=== PATIENT | male | born 1985 | race Caucasian/White ===

== ENCOUNTER → 2023-08-27 08:10 | Outpatient (REF) | payer OTHER, SELFPAY | LOC: RAD 08:10 | PROVIDERS: ATTENDING PHYSICIAN Internal Medicine; FAMILY PHYSICIAN Internal Medicine | DX: R14.2 Eructation (principal); R10.12 Left upper quadrant pain | CPT/HCPCS: 78264; A9541 ==

== ENCOUNTER → 2024-03-15 09:01 | Outpatient (REF) | payer OTHER, SELFPAY | LOC: MRI 3T 09:01 | PROVIDERS: ATTENDING PHYSICIAN Internal Medicine; FAMILY PHYSICIAN Internal Medicine | DX: K82.4 Cholesterolosis of gallbladder (principal); R14.1 Gas pain; R11.2 Nausea with vomiting, unspecified | CPT/HCPCS: 72197; 74183; A9585 ==

== ENCOUNTER 2024-04-01 06:37 | Day surgery (SDC) | payer OTHER, SELFPAY | END 2024-04-01 15:13 | disposition home or self-care (01) | LOC: GI 06:37 | PROVIDERS: ATTENDING PHYSICIAN Internal Medicine; FAMILY PHYSICIAN Internal Medicine | DX: R10.12 Left upper quadrant pain (principal); R11.2 Nausea with vomiting, unspecified; K63.89 Other specified diseases of intestine; K52.89 Other specified noninfective gastroenteritis and colitis | CPT/HCPCS: 45380; 88305 ==

== ENCOUNTER → 2024-04-05 09:20 | Outpatient (REF) | payer OTHER, SELFPAY | LOC: RAD 09:20 | PROVIDERS: ATTENDING PHYSICIAN Internal Medicine; FAMILY PHYSICIAN Internal Medicine | DX: R10.9 Unspecified abdominal pain (principal); R11.2 Nausea with vomiting, unspecified; K38.9 Disease of appendix, unspecified | CPT/HCPCS: 74177; Q9967 ==

== ENCOUNTER 2024-05-13 11:07 | Day surgery (SDC) | payer OTHER, SELFPAY ==
[2024-05-06 08:56] LABS: Hematocrit 40.4 % (39.0-52.0); Hemoglobin 13.8 g/dL (13.0-18.0); Mean Corp Hgb Conc. 34.2 g/dL (33.0-37.0); Mean Corpuscular Hgb 30.5 pg (27.0-31.0); Mean Corpuscular Volume 89.2 fL (80.0-94.0); Mean Platelet Volume 10.6 fL (7.4-10.4); Platelet Count 197 10^3/uL (130-400); Red Blood Cell Count 4.53 10^6/uL (4.70-6.10); Red Cell Dist. Width 12.7 % (11.5-14.5); White Blood Cell Count 3.9 10^3/uL (4.8-10.8)
[2024-05-06 09:11] LABS: INR 0.97; PT 13.4 Sec (11.4-14.6)
[2024-05-06 09:12] LABS: APTT 30.8 Sec (23.4-35.0)
[2024-05-06 10:01] LABS: ALT (SGPT) 11 U/L (0-50); AST (SGOT) 25 U/L (17-59); Albumin 3.8 g/dl (3.5-5.0); Alkaline Phosphatase 55 U/L (38-126); Blood Urea Nitrogen 19 mg/dl (9-20); Calcium 9.3 mg/dl (8.4-10.2); Carbon Dioxide 27 mmol/L (22-30); Chloride 106 mmol/L (98-107); Glucose 87 mg/dl (70-99); Potassium 4.1 mmol/L (3.5-5.1); Sodium 139 mmol/L (135-145); Total Bilirubin 0.9 mg/dl (0.2-1.3); Total Protein 6.3 g/dl (6.3-8.2); eGFR > 60.00
[2024-05-06 10:26] LABS: Glycohemoglobin (HgbA1c) 5.3 % (4.0-5.6)
[2024-05-06 14:18] VITALS: BMI 29.5
[2024-05-13] VITALS (11 sets, daily range): BP systolic 110–135; BP diastolic 63–94; BMI 29.5
[2024-05-13] MEDS: NORMOSOL-R/PLASMALYTE-A 1000 IV ×2 (11:28→15:33)
[2024-05-13] MEDS: TYLENOL 1000 MG PO (11:29)
[2024-05-13] MEDS: NEURONTIN 600 MG PO (11:29)
[2024-05-13] MEDS: ENTEREG 12 MG PO (11:29)
[2024-05-13] MEDS: HEPARIN 5000 UNITS SC (12:34)
[2024-05-13] MEDS: ZOFRAN 4 MG IV (15:37)
[2024-05-13] MEDS: TORADOL 15 MG IV (15:39)
== END 2024-05-13 17:02 | disposition home or self-care (01) ==
LOC: SDS 11:07
PROVIDERS: ATTENDING PHYSICIAN Surgery; FAMILY PHYSICIAN Internal Medicine
DX: K36 Other appendicitis (principal)
CPT/HCPCS: 44970; 88304; 36415; 80053; 83036; 85027; 85610; 85730; 86850; 86900; 86901; 93005; J1335